=== PATIENT | female | born 1985 | race Caucasian/White ===

== ENCOUNTER 2018-05-04 16:37 | Emergency (ER) | payer OTHER, SELFPAY ==
[2018-05-04 17:02] VITALS: BP 111/73; PULSE 70; RESP 18; TEMP 36.7; O2SAT 99; BMI 28.5
--- NOTE | 2018-05-04 18:28 | DI.RAD.S_ITS ---
PROCEDURE: XR SHOULDER RT MIN 2V INDICATIONS: injury/pain TECHNIQUE: 3 views of the shoulder were acquired. COMPARISON: None. FINDINGS: Bones: No fractures or dislocations. No suspicious bony lesions. Visualized ribs appear intact. Soft tissues: No suspicious soft tissue calcifications. IMPRESSION: No fracture or dislocation. If clinical symptoms persist or clinical suspicion for pathology is high, a repeat examination in 7-10 days, or advanced imaging such as CT or MRI is suggested for further evaluation. Dictated by: Yoel Au M.D. on 05/04/2018 at 19:42 Approved by: Yoel Au M.D. on 05/04/2018 at 19:43
--- NOTE | 2018-05-04 18:38 | ED.UPPEXIN ---
HPI - Extremity Injury (Upper) <CHASE Lopez - Last Filed: 05/04/18 22:17> General Chief Complaint: Extremity Injury, Upper Stated Complaint: FALL RIGHT ARM INJURY Time Seen by Provider: 05/04/18 18:32 Source: patient Mode of arrival: ambulatory Limitations: no limitations History of Present Illness HPI narrative: 32-year-old healthy female that is a former smoker here for complaint of having pain to to her right shoulder over for the last 2 days. She reports that she slipped while she was ice skating landed on her right shoulder area. Increased pain with motion of the right shoulder. She denies hitting her head. She denies any loss of consciousness. No nausea vomiting. Pain is limited to the right shoulder/right upper humerus area. She is ambulatory into the emergency room. She has no other concerns or complaints at this timeframe. Related Data Home Medications Medication Instructions Recorded Confirmed [ CONTROL] #0 04/07/16 cetirizine #0 04/07/16 cholecalciferol (vitamin D3) #0 04/07/16 [Vitamin D3] loratadine [Claritin] #0 04/07/16 Previous Rx's Medication Instructions Recorded ondansetron [Zofran ODT] 4 mg SUBLINGUAL Q4HP PRN #15 odt 04/07/16 Allergies Allergy/AdvReac Type Severity Reaction Status Date / Time carbinoxamine [From [facility]] Allergy Unknown Verified 05/04/18 17:08 pseudoephedrine [From [facility]] Allergy Unknown Verified 05/04/18 17:08 Review of Systems <CHASE Lopez - Last Filed: 05/04/18 22:17> Constitutional Denies chills, Denies fever(s), Denies lethargy and Denies weakness Eyes Denies change in vision, Denies eye discharge, Denies irritation and Denies loss of vision ENT Ears, Nose, Mouth, and Throat: Denies change in voice, Denies neck pain, Denies sore throat and Denies throat swelling Cardiovascular Denies chest pain, Denies irregular heart rhythm, Denies lightheadedness, Denies palpitations and Denies orthopnea Respiratory Denies wheezing Gastrointestinal Gastrointestinal: Denies abdominal pain, Denies change in bowel habits, Denies diarrhea, Denies nausea and Denies vomiting Genitourinary Denies hematuria, Denies flank pain, Denies urinary incontinence and Denies urinary urgency Musculoskeletal Denies neck pain Comments: Right shoulder pain Integumentary/Breasts Denies pruritus, Denies erythema, Denies rash and Denies wounds Neurologic Denies loss of vision and Denies weakness Endocrine Denies palpitations Allergic/Immunologic Denies urticaria, Denies throat swelling and Denies wheezing PFSH <CHASE Lopez - Last Filed: 05/04/18 22:17> Social History Smoking Status: Former smoker Social History Smoking Status: Former smoker Exam <CHASE Lopez - Last Filed: 05/04/18 22:17> Initial Vital Signs Initial Vital Signs: Vital Signs Temperature 98.0 F 05/04/18 17:02 Pulse Rate 70 05/04/18 17:02 Respiratory Rate 18 05/04/18 17:02 Blood Pressure 111/73 05/04/18 17:02 Pulse Oximetry 99 05/04/18 17:02 Const General: cooperative and well developed Nutritional Appearance: well nourished Orientation: alert, awake, oriented x3 and not confused HENIA Mouth: oral mucosae normal and moist mucous membranes Eyes Conjunctivae: conjunctivae normal Sclera: sclerae normal Pupils: PERRL EOM: EOM intact bilaterally Resp Effort & Inspection: normal respiratory effort, able to speak in complete sentences, no respiratory distress and no use of accessory muscles Auscultation: clear to auscultation bilaterally, no rales, no rhonchi and no wheezes Cardio Rate: regular rate Rhythm: regular rhythm Heart Sounds: no click, no gallops, no murmurs and no rubs Pulses: normal peripheral pulses Skin General: no rashes or lesions noted, No jaundice and No petechiae Neuro General: alert, oriented x3, gait normal and no focal motor deficits Speech: speech normal Extrem Other: Right shoulder with no signs of trauma. No ecchymosis. No swelling. Tenderness on palpation to the upper arm area and also to the deltoid region and the shoulder area. Pain with motion to the right shoulder with flexion greater than 40? and abduction greater than 40?. Distal sensation is intact. Distal range of motion is intact. Distal pulses are intact. <Diya Singh DO - Last Filed: 05/05/18 04:27> Initial Vital Signs Initial Vital Signs: Vital Signs Temperature 98.0 F 05/04/18 17:02 Pulse Rate 70 05/04/18 17:02 Respiratory Rate 18 05/04/18 17:02 Blood Pressure 111/73 05/04/18 17:02 Pulse Oximetry 99 05/04/18 17:02 Course <CHASE Lopez - Last Filed: 05/04/18 22:17> Orders Ordered: ED Orders 05/04/18 18:28 XR shoulder RT min 2V Stat Vital Signs - 8 hr 05/04/18 21:18 Pulse Rate 66 Respiratory Rate 16 Blood Pressure 105/72 Pulse Oximetry 100 <DO Carson Gibson Last Filed: 05/05/18 04:27> Orders Ordered: ED Orders 05/04/18 18:28 XR shoulder RT min 2V Stat Vital Signs - 8 hr 05/04/18 21:18 Pulse Rate 66 Respiratory Rate 16 Blood Pressure 105/72 Pulse Oximetry 100 MDM - Extremity Injury (Upper) <CHASE Lopez - Last Filed: 05/04/18 22:17> Imaging Data right shoulder : Radiologist's impression: [address] [place] [id number] XRay Report Signed Patient: Lisa Rivas [facility]#: [id number] : 1985Acct:[id number] Age/Sex: 32 / FDate of Service: 05/04/18 Loc: ED Accession Number: [id number] Procedure: XR shoulder RT min 2V Ordering Provider: Diya Singh D.O. PROCEDURE: XR SHOULDER RT MIN 2V INDICATIONS: injury/pain TECHNIQUE: 3 views of the shoulder were acquired. COMPARISON: None. FINDINGS: Bones: No fractures or dislocations. No suspicious bony lesions. Visualized ribs appear intact. Soft tissues: No suspicious soft tissue calcifications. IMPRESSION: No fracture or dislocation. If clinical symptoms persist or clinical suspicion for pathology is high, a repeat examination in 7-10 days, or advanced imaging such as CT or MRI is suggested for further evaluation. Dictated by: Yoel Au M.D. on 05/04/2018 at 19:42 Approved by: Yoel Au M.D. on 05/04/2018 at 19:43 MDM Narrative Medical decision making narrative: X-ray of the right shoulder was obtained was negative for any acute fractures or findings. Signs and symptoms presents as sprain/contusion of the right shoulder. [id number] ibuprofen as needed for any discomfort. Rest area. Gentle range of motion into the painful areas help keep muscles loose. Follow up with primary care provider in the next several days. Return emergency room for any worsening symptoms. If pain is not improved after 1-2 weeks recommend MRI for further evaluation. Discharge Plan Departure Patient Disposition: Home Clinical Impression: Contusion of right shoulder Qualifiers: Encounter type: initial encounter Qualified Code(s): S40.011A - Contusion of right shoulder, initial encounter Discharge Date/Time: 05/04/18 21:15 Interventions: ED Discharge Assessment Last Done: 05/04/18 21:18 Instructions: DI for Shoulder Pain Activity Restrictions/Additional Instructions: X-ray the right shoulder was obtained was negative for any acute fractures or findings. Signs and symptoms presents as sprain/contusion of the right shoulder. Use [id number] ibuprofen as needed for any discomfort. Rest area. Gentle range of motion painful areas to help keep muscles loose. Follow up with primary care provider. If pain does not resolve after 1-2 weeks recommend MRI for further evaluation. Return emergency room for any Prescriptions: No Action cetirizine 10 MG tablet Qty: 0 RF: 0 loratadine [Claritin] 10 MG tablet Qty: 0 RF: 0 cholecalciferol (vitamin D3) [Vitamin D3] 2,000 UNIT capsule Qty: 0 RF: 0 [ CONTROL] Qty: 0 RF: 0 ondansetron [Zofran ODT] 4 MG tablet,disintegrating 4 mg Sublingual Q4HP PRNQty: 15 RF: 0 Referrals: [facility] [Provider Group] <Diya Singh, - Last Filed: 05/05/18 04:27> Cosign ED Attending Korina Attestation: I was immediately available in the department for consultation. Documentation has been reviewed. I agree with assessment and plan.
[2018-05-04 20:00] VITALS: BP 107/62; PULSE 65; RESP 17; TEMP 36.6; O2SAT 100
[2018-05-04 21:18] VITALS: BP 105/72; PULSE 66; RESP 16; O2SAT 100
== END 2018-05-04 21:15 | disposition home or self-care (01) ==
PROVIDERS: Emergency Provider Nurse Practitioner Family
DX: S40.011A Contusion of right shoulder, initial encounter (principal); W01.0XXA Fall on same level from slipping, tripping and stumbling without subsequent striking against object, initial encounter
CPT/HCPCS: 73030; 99282; 99283

== ENCOUNTER 2018-08-18 13:08 | Emergency (ER) | payer OTHER, SELFPAY ==
[2018-08-18 13:19] VITALS: BP 121/78; PULSE 55; RESP 18; TEMP 36.7; O2SAT 100
--- NOTE | 2018-08-18 13:23 | DI.RAD.S_ITS ---
PROCEDURE: XR CHEST 2V INDICATIONS: chest pain TECHNIQUE: 2 views of the chest were acquired. COMPARISON: None. FINDINGS: Surgical changes and devices: None. Lungs and pleura: Lungs are clear. No pleural effusions or pneumothorax. Mediastinum: Mediastinal contours are normal. Heart size is normal. Bones and chest wall: No suspicious bony abnormalities. Soft tissues appear unremarkable. IMPRESSION: Normal chest. Dictated by: Sarahi Goodman M.D. on 08/18/2018 at 13:56 Approved by: Sarahi Goodman M.D. on 08/18/2018 at 14:03
[2018-08-18 13:54] LABS: Prothrombin Time 11.2 SECONDS (10.1-12.7)
[2018-08-18 13:56] LABS: PTT Partial Thromboplastin Tim 31 SECONDS (26.4-36.2)
--- NOTE | 2018-08-18 13:57 | ED.CHESTPAIN ---
HPI - Chest Pain General Chief Complaint: Chest Pain Stated Complaint: Chest pain & fluttering, rt thigh clinched Time Seen by Provider: 08/18/18 13:53 Source: patient and family Mode of arrival: ambulatory Limitations: no limitations History of Present Illness HPI narrative: 32-year-old male comes to the emergency department with complaint of left-sided chest pain. Kind of above the breast and radiating just along left sternal border. Patient states it woke her up for sleep threat 1:00 a.m.. Patient states she tried some Tums, it was really helpful. She tried some of her home breathing exercises. She states that it has improved a little bit. She ate lunch and had some discomfort, and then at 10:00 a.m. she noticed lot of pain in her right thigh that was deep within the thigh. Patient states that she isn't feeling short of breath. She denies any fevers. Patient has had some swelling all over her joints she noticed particular little bit more yesterday. Pain sort of in her thigh goes from the knee to the hip. She denies any trauma. She denies any skin changes no bruises, rashes in her legs or chest. 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 She has had a cholecystectomy and . She is in the process of getting worked up for autoimmune diseases. As states she has a family history of coronary artery disease in her mom as well as Alport's. Her dad has dyslipidemia, she has a brother with all ports. She does not smoke, occasional alcohol, no illicit. She is accompanied by her and 2 children. Related Data Home Medications Medication Instructions Recorded Confirmed [ CONTROL] #0 04/07/16 cetirizine #0 04/07/16 cholecalciferol (vitamin D3) #0 04/07/16 [Vitamin D3] loratadine [Claritin] #0 04/07/16 Previous Rx's Medication Instructions Recorded ondansetron [Zofran ODT] 4 mg SUBLINGUAL Q4HP PRN #15 odt 04/07/16 Allergies Allergy/AdvReac Type Severity Reaction Status Date / Time carbinoxamine [From [facility]] Allergy Unknown Verified 05/04/18 17:08 pseudoephedrine [From [facility]] Allergy Unknown Verified 05/04/18 17:08 Review of Systems Review of Systems ROS Unobtainable: All systems reviewed & are unremarkable except as noted in HPI and below Constitutional Denies chills, Denies fever(s), Denies lethargy and Denies weakness Cardiovascular Reports chest pain, Denies diaphoresis, Denies syncope, Denies edema, Denies lightheadedness, Denies radiating jaw, neck or arm pain, Denies palpitations, Denies dyspnea and Denies dyspnea on exertion Respiratory Denies chest congestion, Denies cough, Denies pain on inspiration, Denies pain with cough, Denies dyspnea, Denies dyspnea on exertion and Denies wheezing Gastrointestinal Gastrointestinal: Denies abdominal pain, Denies change in bowel habits, Denies diarrhea, Denies nausea and Denies vomiting Genitourinary Denies hematuria, Denies dysuria, Denies flank pain, Denies urinary incontinence and Denies urinary urgency Musculoskeletal Reports as per HPI, Denies back pain, Reports arthralgias (Intermittent variety of joints and changing over time.), Denies muscle weakness, Denies numbness and Denies tingling Integumentary/Breasts Denies erythema and Denies rash Neurologic Denies syncope, Denies focal weakness, Denies numbness, Denies sensory deficit, Denies tingling and Denies weakness Endocrine Denies palpitations Allergic/Immunologic Denies wheezing [facility] Medical History (Updated 08/18/18 @ 15:59 by Mary Centeno DO) Alports syndrome (Chronic) Surgical History (Updated 08/18/18 @ 15:59 by Mary Centeno DO) History of (Chronic) Hx of cholecystectomy (Chronic) Family History (Updated 08/18/18 @ 16:00 by Mary Centeno DO) Mother Coronary artery disease Alports syndrome Father Hyperlipidemia Brother Alports syndrome Social History (Updated 08/18/18 @ 16:00 by Mary Centeno DO) marital status: number of children: 2 Smoking Status: Former smoker alcohol intake: current substance use type: does not use Family History (Updated 08/18/18 @ 16:00 by Mary Centeno DO) Mother Coronary artery disease Alports syndrome Father Hyperlipidemia Brother Alports syndrome Social History (Updated 08/18/18 @ 16:00 by Mary Centeno DO) marital status: number of children: 2 Smoking Status: Former smoker alcohol intake: current substance use type: does not use Exam Narrative Exam Narrative: GENERAL: Alert and oriented x three, well-nourished, well-appearing female in no acute distress. HEENT: Head normocephalic, atraumatic, EOMI, pupils reactive, face symmetric, moist mucous membranes NECK: Supple, full range of motion CARDIOVASCULAR: Regular rate and rhythm without murmurs, rubs or gallops. Nontender to palpation of the chest. There is no erythema or skin color changes or rash. Patient any swelling in her lower extremities. 2+ pulses bilaterally RESPIRATORY: Breath sounds equal bilaterally, no wheezes rales or rhonchi. ABDOMEN: Soft, nontender. Normoactive bowel sounds all 4 quadrants. No guarding or rebound, rigidity, no mass : No CVA tenderness EXTREMITIES: Normal range of motion, no clubbing. Neurovascularly intact NEUROLOGICAL: Cranial nerves II through XII grossly intact. Moving all extremities SKIN: Warm, dry, no petechiae, no rashes or lesions. Initial Vital Signs Initial Vital Signs: Vital Signs Temperature 98.1 F 08/18/18 13:19 Pulse Rate 55 L 08/18/18 13:19 Respiratory Rate 18 08/18/18 13:19 Blood Pressure 121/78 08/18/18 13:19 Pulse Oximetry 100 08/18/18 13:19 Course Orders Ordered: ED Orders 08/18/18 13:23 XR chest 2V Stat EKG-12 Lead Stat 08/18/18 13:37 Complete Blood Count AUTO DIFF Stat Comprehensive Metabolic Panel Stat D Dimer Stat Lipase Stat Partial Thromboplastin Time Stat Prothrombin Time INR Stat Troponin & CK Cardiac Panel Stat 08/18/18 14:11 US periph venous low extrem rt Stat Vital Signs - 8 hr 08/18/18 13:19 08/18/18 14:30 08/18/18 15:00 Temperature 98.1 F Pulse Rate 55 L 73 82 Respiratory Rate 18 19 18 Blood Pressure 121/78 Blood Pressure [Left Arm] 110/66 104/71 Pulse Oximetry 100 100 100 08/18/18 15:30 Temperature Pulse Rate 82 Respiratory Rate 12 Blood Pressure Blood Pressure [Left Arm] 103/68 Pulse Oximetry 100 MDM - Chest Pain Lab Data Attestation: I reviewed the patient's lab results. Result diagrams: 08/18/18 13:37 08/18/18 13:37 Lab Results 08/18/18 08/18/18 08/18/18 Range/Units 13:37 13:37 13:37 WBC 7.3 (4.5-11.0) X10^3/uL RBC 4.03 (4.0-5.2) X10^6/uL Hgb 10.9 L (12.0-16.0) g/dL Hct 33.8 L (36-46) % MCV 83.7 (80-100) fL MCH 27.1 (26-34) PG MCHC 32.4 (30-36) % RDW 15.2 H (11.6-14.8) % Plt Count 239 (150-400) X10^3/uL Neut % (Auto) 58.2 (50-75) % Lymph % (Auto) 31.4 (25-40) % [place] % (Auto) 7.7 (3-14) % Eos % (Auto) 2.3 (2-4) % Baso % (Auto) 0.4 (0-2) % Neut # (Auto) 4300 (8376-7373) /uL Lymph # (Auto) 2300 (3402-8718) /uL [place] # (Auto) 600 (0-900) /uL Eos # (Auto) 200 (0-450) /uL Baso # (Auto) 0 (0-100) /uL PT 11.2 (10.1-12.7) SECONDS INR 1.0 (0.9-1.3) APTT 31 (26.4-36.2) SECONDS D-Dimer (<230) ng/mL Sodium 139 (137-145) mmol/L Potassium 3.7 (3.4-5.1) mmol/L Chloride 104 (98-107) mmol/L Carbon Dioxide 29 (22-32) mmol/L BUN 12 (7-17) mg/dL Creatinine 0.80 (0.52-1.04) mg/dL Estimated GFR > 60.0 (>60) mL/min BUN/Creatinine Ratio 15.0 (6-22) Glucose 85 (70-100) mg/dL Calcium 9.5 (8.4-10.2) mg/dL Total Bilirubin 0.2 (0.2-1.3) mg/dL AST 21 (14-36) IU/L ALT 36 (9-52) IU/L Alkaline Phosphatase 56 (38-126) U/L Total Creatine Kinase 44 (30-135) U/L CK-MB (CK-2) TNP CK-MB (CK-2) Rel Index TNP Troponin I < 0.012 (0.01-0.034) ng/mL Total Protein 7.3 (6.3-8.2) g/dL Albumin 4.1 (3.5-5.0) g/dL Globulin 3.2 (1.7-4.1) g/dL Albumin/Globulin Ratio 1.3 (1.0-2.8) Lipase 73 (23-300) U/L 08/18/18 Range/Units 13:37 WBC (4.5-11.0) X10^3/uL RBC (4.0-5.2) X10^6/uL Hgb (12.0-16.0) g/dL Hct (36-46) % MCV (80-100) fL MCH (26-34) PG MCHC (30-36) % RDW (11.6-14.8) % Plt Count (150-400) X10^3/uL Neut % (Auto) (50-75) % Lymph % (Auto) (25-40) % [place] % (Auto) (3-14) % Eos % (Auto) (2-4) % Baso % (Auto) (0-2) % Neut # (Auto) (8647-0202) /uL Lymph # (Auto) (1670-2827) /uL [place] # (Auto) (0-900) /uL Eos # (Auto) (0-450) /uL Baso # (Auto) (0-100) /uL PT (10.1-12.7) SECONDS INR (0.9-1.3) APTT (26.4-36.2) SECONDS D-Dimer < 200 (<230) ng/mL Sodium (137-145) mmol/L Potassium (3.4-5.1) mmol/L Chloride (98-107) mmol/L Carbon Dioxide (22-32) mmol/L BUN (7-17) mg/dL Creatinine (0.52-1.04) mg/dL Estimated GFR (>60) mL/min BUN/Creatinine Ratio (6-22) Glucose (70-100) mg/dL Calcium (8.4-10.2) mg/dL Total Bilirubin (0.2-1.3) mg/dL AST (14-36) IU/L ALT (9-52) IU/L Alkaline Phosphatase (38-126) U/L Total Creatine Kinase (30-135) U/L CK-MB (CK-2) CK-MB (CK-2) Rel Index Troponin I (0.01-0.034) ng/mL Total Protein (6.3-8.2) g/dL Albumin (3.5-5.0) g/dL Globulin (1.7-4.1) g/dL Albumin/Globulin Ratio (1.0-2.8) Lipase (23-300) U/L Urine Dip Bedside Urine Glucose Negative Bedside Urine Bilirubin - Negative Bedside Urine Ketone - Negative Urine Specific [place] 1.030 Bedside Urine Occult Blood ++ Bedside Urine pH 6.0 Bedside Urine Protein - Negative Bedside Urine Urobilinogen - Negative Bedside Urine Nitrite - Negative Bedside Urine Leukocytes - Negative Esterase Imaging Data Chest x-ray: Radiologist's impression: [place] [address] XRay Report Signed Patient: Lisa Rivas MMR#: [id number] : 1985Acct:[id number] Age/Sex: 32 / FDate of Service: 08/18/18 Loc: ED Accession Number: [id number] Procedure: XR chest 2V Ordering Provider: Mary Centeno D.O. PROCEDURE: XR CHEST 2V INDICATIONS: chest pain TECHNIQUE: 2 views of the chest were acquired. COMPARISON: None. FINDINGS: Surgical changes and devices: None. Lungs and pleura: Lungs are clear. No pleural effusions or pneumothorax. Mediastinum: Mediastinal contours are normal. Heart size is normal. Bones and chest wall: No suspicious bony abnormalities. Soft tissues appear unremarkable. IMPRESSION: Normal chest. Dictated by: Sarahi Goodman M.D. on 08/18/2018 at 13:56 Approved by: Sarahi Goodman M.D. on 08/18/2018 at 14:03 Right lower extremity DVT ultrasound: Radiologist's impression: [facility] DATE TYPE STATUS AUTHOR 08/18/18 14:11 Elio Funes 08/18/18 13:23 Sarahi Goodman 05/04/18 18:28 Steve Au Brandy M 32, F0 1985 REG ER, ED.LOC - Main ED: R07 Chest Pain Search Chart NF - Not included in interaction checking ONSET Today 15:30 Lisa Rivas 32 F [address] [address] Ultrasound Report Signed Patient: Lisa Rivas MMR#: [id number] : 1985Acct:[id number] Age/Sex: 32 / FDate of Service: 08/18/18 Loc: ED Accession Number: [id number] Procedure: US periph venous low extrem rt Ordering Provider: Mary Centeno D.O. PROCEDURE: US PERIPH VENOUS LOW EXTREM RT INDICATIONS: RIGHT THIGH PAIN, CHEST PAIN. NO TRAUMA, ALPORTS SYNDROME TECHNIQUE: Real-time imaging, as well as color and pulse Doppler interrogation, were performed of the lower extremity deep veins from the inguinal ligament to the popliteal fossa. COMPARISON: None. FINDINGS: The common femoral, femoral and popliteal veins are normally compressible, and free of intraluminal thrombus. Color and pulse Doppler demonstrate normal phasic intraluminal flow. There is normal augmentation response to distal compression maneuver. IMPRESSION: Negative for deep venous thrombosis. Dictated by: Elio Funes M.D. on 08/18/2018 at 13:43 Approved by: Elio Funes M.D. on 08/18/2018 at 13:43 ECG Data Attestation: I personally reviewed and interpreted this ECG as follows: Prior ECG tracings: not available for review Interpretation: Sinus rhythm the rate 86 P are 173 QRS 87 QTC of [address] elevation or depression. No prior EKGs are available MDM Narrative Medical decision making narrative: Patient's lab work is negative including troponin, patient is a little bit anemic with hemoglobin of 10, her last hemoglobin was at 13 in 2017. His CMP is negative, troponin is negative. Patient's lipase is normal. Patient's EKG shows a sinus rhythm. Ultrasound preliminary report was negative. With a normal chest x-ray. Patient's ultrasound is negative. I discussed she should follow up with her primary care she has been having some workup for autoimmune diseases. Patient's greater than 12 hours out with negative troponin. Vital signs are stable here in the department. I suspect that this is not coronary, suspicion for pulmonary embolism or other lung causes are unlikely. Discharge Plan Departure Patient Disposition: Home Clinical Impression: Atypical chest pain, Pain in right thigh Discharge Date/Time: 08/18/18 15:57 Interventions: ED Discharge Assessment Last Done: 08/18/18 16:05 Instructions: DI for Atypical Chest Pain Activity Restrictions/Additional Instructions: Follow-up with your physician in the next week for recheck. Discussed her symptoms today to see if they would like to do any additional testing. You may continue home medications as prescribed. You may try Pepcid [id number] up to 40 mg daily if you find it helpful.' Return to the emergency department for fevers greater 100.4 F, worsening chest pain, shortness of breath, passing out, persistent vomiting, black or bloody stools, swelling in her extremities or other new or concerning symptoms. Prescriptions: No Action cetirizine 10 MG tablet Qty: 0 RF: 0 loratadine [Claritin] 10 MG tablet Qty: 0 RF: 0 cholecalciferol (vitamin D3) [Vitamin D3] 2,000 UNIT capsule Qty: 0 RF: 0 [ CONTROL] Qty: 0 RF: 0 ondansetron [Zofran ODT] 4 MG tablet,disintegrating 4 mg Sublingual Q4HP PRNQty: 15 RF: 0
[2018-08-18 14:01] LABS: Alanine Aminotransferase 36 IU/L (9-52); Albumin 4.1 g/dL (3.5-5.0); Albumin Globulin Ratio 1.3 (1.0-2.8); Alkaline Phosphatase 56 U/L (38-126); Aspartate Aminotransferase 21 IU/L (14-36); Bilirubin Total 0.2 mg/dL (0.2-1.3); Blood Urea Nitrogen 12 mg/dL (7-17); Calcium 9.5 mg/dL (8.4-10.2); Carbon Dioxide 29 mmol/L (22-32); Chloride 104 mmol/L (98-107); Creatine Kinase 44 U/L (30-135); Estimated Glomerular Filt Rate > 60.0 mL/min (>60); Globulin 3.2 g/dL (1.7-4.1); Glucose 85 mg/dL (70-100); HEMOLYSIS < 15 (0-50); Lipase 73 U/L (23-300); Potassium 3.7 mmol/L (3.4-5.1); Sodium 139 mmol/L (137-145); Total Protein 7.3 g/dL (6.3-8.2)
[2018-08-18 14:11] LABS: Troponin I < 0.012 ng/mL (0.01-0.034)
--- NOTE | 2018-08-18 14:13 | ED_ITS ---
HPI - Chest Pain General Chief Complaint: Chest Pain Stated Complaint: Chest pain & fluttering, rt thigh clinched Time Seen by Provider: 08/18/18 13:53 Source: patient and family Mode of arrival: ambulatory Limitations: no limitations History of Present Illness HPI narrative: 32-year-old male comes to the emergency department with complaint of left-sided chest pain. Kind of above the breast and radiating just along left sternal border. Patient states it woke her up for sleep threat 1:00 a.m.. Patient states she tried some Tums, it was really helpful. She tried some of her home breathing exercises. She states that it has improved a little bit. She ate lunch and had some discomfort, and then at 10:00 a.m. she noticed lot of pain in her right thigh that was deep within the thigh. Patient states that she isn't feeling short of breath. She denies any fevers. Patient has had some swelling all over her joints she noticed particular little bit more yesterday. Pain sort of in her thigh goes from the knee to the hip. She denies any trauma. She denies any skin changes no bruises, rashes in her legs or chest. 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 She has had a cholecystectomy and . She is in the process of getting worked up for autoimmune diseases. As states she has a family history of coronary artery disease in her mom as well as Alport's. Her dad has dyslipidemia, she has a brother with all ports. She does not smoke, occasional alcohol, no illicit. She is accompanied by her and 2 children. Related Data Home Medications Medication Instructions Recorded Confirmed [ CONTROL] #0 04/07/16 cetirizine #0 04/07/16 cholecalciferol (vitamin D3) #0 04/07/16 [Vitamin D3] loratadine [Claritin] #0 04/07/16 Previous Rx's Medication Instructions Recorded ondansetron [Zofran ODT] 4 mg SUBLINGUAL Q4HP PRN #15 odt 04/07/16 Allergies Allergy/AdvReac Type Severity Reaction Status Date / Time carbinoxamine [From [facility]] Allergy Unknown Verified 05/04/18 17:08 pseudoephedrine [From [facility]] Allergy Unknown Verified 05/04/18 17:08 Review of Systems Review of Systems ROS Unobtainable: All systems reviewed & are unremarkable except as noted in HPI and below Constitutional Denies chills, Denies fever(s), Denies lethargy and Denies weakness Cardiovascular Reports chest pain, Denies diaphoresis, Denies syncope, Denies edema, Denies lightheadedness, Denies radiating jaw, neck or arm pain, Denies palpitations, Denies dyspnea and Denies dyspnea on exertion Respiratory Denies chest congestion, Denies cough, Denies pain on inspiration, Denies pain with cough, Denies dyspnea, Denies dyspnea on exertion and Denies wheezing Gastrointestinal Gastrointestinal: Denies abdominal pain, Denies change in bowel habits, Denies diarrhea, Denies nausea and Denies vomiting Genitourinary Denies hematuria, Denies dysuria, Denies flank pain, Denies urinary incontinence and Denies urinary urgency Musculoskeletal Reports as per HPI, Denies back pain, Reports arthralgias (Intermittent variety of joints and changing over time.), Denies muscle weakness, Denies numbness and Denies tingling Integumentary/Breasts Denies erythema and Denies rash Neurologic Denies syncope, Denies focal weakness, Denies numbness, Denies sensory deficit, Denies tingling and Denies weakness Endocrine Denies palpitations Allergic/Immunologic Denies wheezing [facility] Medical History (Updated 08/18/18 @ 15:59 by Mary Centeno DO) Alports syndrome (Chronic) Surgical History (Updated 08/18/18 @ 15:59 by Mary Centeno DO) History of (Chronic) Hx of cholecystectomy (Chronic) Family History (Updated 08/18/18 @ 16:00 by Mary Centeno DO) Mother Coronary artery disease Alports syndrome Father Hyperlipidemia Brother Alports syndrome Social History (Updated 08/18/18 @ 16:00 by Mary Centeno DO) marital status: number of children: 2 Smoking Status: Former smoker alcohol intake: current substance use type: does not use Family History (Updated 08/18/18 @ 16:00 by Mary Centeno DO) Mother Coronary artery disease Alports syndrome Father Hyperlipidemia Brother Alports syndrome Social History (Updated 08/18/18 @ 16:00 by Mary Centeno DO) marital status: number of children: 2 Smoking Status: Former smoker alcohol intake: current substance use type: does not use Exam Narrative Exam Narrative: GENERAL: Alert and oriented x three, well-nourished, well- appearing female in no acute distress. HEENT: Head normocephalic, atraumatic, EOMI, pupils reactive, face symmetric, moist mucous membranes NECK: Supple, full range of motion CARDIOVASCULAR: Regular rate and rhythm without murmurs, rubs or gallops. Nontender to palpation of the chest. There is no erythema or skin color changes or rash. Patient any swelling in her lower extremities. 2+ pulses bilaterally RESPIRATORY: Breath sounds equal bilaterally, no wheezes rales or rhonchi. ABDOMEN: Soft, nontender. Normoactive bowel sounds all 4 quadrants. No guarding or rebound, rigidity, no mass : No CVA tenderness EXTREMITIES: Normal range of motion, no clubbing. Neurovascularly intact NEUROLOGICAL: Cranial nerves II through XII grossly intact. Moving all extremities SKIN: Warm, dry, no petechiae, no rashes or lesions. Initial Vital Signs Initial Vital Signs: Vital Signs Temperature 98.1 F 08/18/18 13:19 Pulse Rate 55 L 08/18/18 13:19 Respiratory Rate 18 08/18/18 13:19 Blood Pressure 121/78 08/18/18 13:19 Pulse Oximetry 100 08/18/18 13:19 Course Orders Ordered: ED Orders 08/18/18 13:23 XR chest 2V Stat EKG-12 Lead Stat 08/18/18 13:37 Complete Blood Count AUTO DIFF Stat Comprehensive Metabolic Panel Stat D Dimer Stat Lipase Stat Partial Thromboplastin Time Stat Prothrombin Time INR Stat Troponin & CK Cardiac Panel Stat 08/18/18 14:11 US periph venous low extrem rt Stat Vital Signs - 8 hr 08/18/18 13:19 08/18/18 14:30 08/18/18 15:00 Temperature 98.1 F Pulse Rate 55 L 73 82 Respiratory Rate 18 19 18 Blood Pressure 121/78 Blood Pressure [Left Arm] 110/66 104/71 Pulse Oximetry 100 100 100 08/18/18 15:30 Temperature Pulse Rate 82 Respiratory Rate 12 Blood Pressure Blood Pressure [Left Arm] 103/68 Pulse Oximetry 100 MDM - Chest Pain Lab Data Attestation: I reviewed the patient's lab results. Result diagrams: 08/18/18 13:37 08/18/18 13:37 Lab Results 08/18/18 08/18/18 08/18/18 Range/Units 13:37 13:37 13:37 WBC 7.3 (4.5-11.0) X10^3/uL RBC 4.03 (4.0-5.2) X10^6/uL Hgb 10.9 L (12.0-16.0) g/dL Hct 33.8 L (36-46) % MCV 83.7 (80-100) fL MCH 27.1 (26-34) PG MCHC 32.4 (30-36) % RDW 15.2 H (11.6-14.8) % Plt Count 239 (150-400) X10^3/uL Neut % (Auto) 58.2 (50-75) % Lymph % (Auto) 31.4 (25-40) % Garrett % (Auto) 7.7 (3-14) % Eos % (Auto) 2.3 (2-4) % Baso % (Auto) 0.4 (0-2) % Neut # (Auto) 4300 (1210-0920) /uL Lymph # (Auto) 2300 (4417-9357) /uL Garrett # (Auto) 600 (0-900) /uL Eos # (Auto) 200 (0-450) /uL Baso # (Auto) 0 (0-100) /uL PT 11.2 (10.1-12.7) SECONDS INR 1.0 (0.9-1.3) APTT 31 (26.4-36.2) SECONDS D-Dimer (<230) ng/mL Sodium 139 (137-145) mmol/L Potassium 3.7 (3.4-5.1) mmol/L Chloride 104 (98-107) mmol/L Carbon Dioxide 29 (22-32) mmol/L BUN 12 (7-17) mg/dL Creatinine 0.80 (0.52-1.04) mg/dL Estimated GFR > 60.0 (>60) mL/min BUN/Creatinine Ratio 15.0 (6-22) Glucose 85 (70-100) mg/dL Calcium 9.5 (8.4-10.2) mg/dL Total Bilirubin 0.2 (0.2-1.3) mg/dL AST 21 (14-36) IU/L ALT 36 (9-52) IU/L Alkaline Phosphatase 56 (38-126) U/L Total Creatine Kinase 44 (30-135) U/L CK-MB (CK-2) TNP CK-MB (CK-2) Rel Index TNP Troponin I < 0.012 (0.01-0.034) ng/mL Total Protein 7.3 (6.3-8.2) g/dL Albumin 4.1 (3.5-5.0) g/dL Globulin 3.2 (1.7-4.1) g/dL Albumin/Globulin Ratio 1.3 (1.0-2.8) Lipase 73 (23-300) U/L 08/18/18 Range/Units 13:37 WBC (4.5-11.0) X10^3/uL RBC (4.0-5.2) X10^6/uL Hgb (12.0-16.0) g/dL Hct (36-46) % MCV (80-100) fL MCH (26-34) PG MCHC (30-36) % RDW (11.6-14.8) % Plt Count (150-400) X10^3/uL Neut % (Auto) (50-75) % Lymph % (Auto) (25-40) % Garrett % (Auto) (3-14) % Eos % (Auto) (2-4) % Baso % (Auto) (0-2) % Neut # (Auto) (8606-6454) /uL Lymph # (Auto) (4835-0433) /uL Garrett # (Auto) (0-900) /uL Eos # (Auto) (0-450) /uL Baso # (Auto) (0-100) /uL PT (10.1-12.7) SECONDS INR (0.9-1.3) APTT (26.4-36.2) SECONDS D-Dimer < 200 (<230) ng/mL Sodium (137-145) mmol/L Potassium (3.4-5.1) mmol/L Chloride (98-107) mmol/L Carbon Dioxide (22-32) mmol/L BUN (7-17) mg/dL Creatinine (0.52-1.04) mg/dL Estimated GFR (>60) mL/min BUN/Creatinine Ratio (6-22) Glucose (70-100) mg/dL Calcium (8.4-10.2) mg/dL Total Bilirubin (0.2-1.3) mg/dL AST (14-36) IU/L ALT (9-52) IU/L Alkaline Phosphatase (38-126) U/L Total Creatine Kinase (30-135) U/L CK-MB (CK-2) CK-MB (CK-2) Rel Index Troponin I (0.01-0.034) ng/mL Total Protein (6.3-8.2) g/dL Albumin (3.5-5.0) g/dL Globulin (1.7-4.1) g/dL Albumin/Globulin Ratio (1.0-2.8) Lipase (23-300) U/L Urine Dip Bedside Urine Glucose Negative Bedside Urine Bilirubin - Negative Bedside Urine Ketone - Negative Urine Specific Driggs 1.030 Bedside Urine Occult Blood ++ Bedside Urine pH 6.0 Bedside Urine Protein - Negative Bedside Urine Urobilinogen - Negative Bedside Urine Nitrite - Negative Bedside Urine Leukocytes - Negative Esterase Imaging Data Chest x-ray: Radiologist's impression: [place] [address] XRay Report Signed Patient: Lisa Rivas MMR#: [id number] : 1985Acct:[id number] Age/Sex: 32 / FDate of Service: 08/18/18 Loc: ED Accession Number: [id number] Procedure: XR chest 2V Ordering Provider: Mary Centeno D.O. PROCEDURE: XR CHEST 2V INDICATIONS: chest pain TECHNIQUE: 2 views of the chest were acquired. COMPARISON: None. FINDINGS: Surgical changes and devices: None. Lungs and pleura: Lungs are clear. No pleural effusions or pneumothorax. Mediastinum: Mediastinal contours are normal. Heart size is normal. Bones and chest wall: No suspicious bony abnormalities. Soft tissues appear unremarkable. IMPRESSION: Normal chest. Dictated by: Sarahi Goodman M.D. on 08/18/2018 at 13:56 Approved by: Sarahi Goodman M.D. on 08/18/2018 at 14:03 Right lower extremity DVT ultrasound: Radiologist's impression: [facility] DATE TYPE STATUS AUTHOR 08/18/18 14:11 Elio Funes 08/18/18 13:23 Sarahi Goodman 05/04/18 18:28 Steve Au Brandy M 32, F0 1985 REG ER, ED.LOC - Main ED: R07 Chest Pain Search Chart NF - Not included in interaction checking ONSET Today 15:30 Lisa Rivas 32 F [address] [address] Ultrasound Report Signed Patient: Lisa Rivas MMR#: [id number] : 1985Acct:[id number] Age/Sex: 32 / FDate of Service: 08/18/18 Loc: ED Accession Number: [id number] Procedure: US periph venous low extrem rt Ordering Provider: Mary Centeno D.O. PROCEDURE: US PERIPH VENOUS LOW EXTREM RT INDICATIONS: RIGHT THIGH PAIN, CHEST PAIN. NO TRAUMA, ALPORTS SYNDROME TECHNIQUE: Real-time imaging, as well as color and pulse Doppler interrogation, were perfo rmed of the lower extremity deep veins from the inguinal ligament to the popliteal fossa. COMPARISON: None. FINDINGS: The common femoral, femoral and popliteal veins are normally compressible, and free of intraluminal thrombus. Color and pulse Doppler demonstrate normal phasic intraluminal flow. There is normal augmentation response to distal compression maneuver. IMPRESSION: Negative for deep venous thrombosis. Dictated by: Elio Funes M.D. on 08/18/2018 at 13:43 Approved by: Elio Funes M.D. on 08/18/2018 at 13:43 ECG Data Attestation: I personally reviewed and interpreted this ECG as follows: Prior ECG tracings: not available for review Interpretation: Sinus rhythm the rate 86 P are 173 QRS 87 QTC of [address] daniela vation or depression. No prior EKGs are available MDM Narrative Medical decision making narrative: Patient's lab work is negative including troponin, patient is a little bit anemic with hemoglobin of 10, her last hemoglobin was at 13 in 2017. His CMP is negative, troponin is negative. Patient's lipase is normal. Patient's EKG shows a sinus rhythm. Ultrasound preliminary report was negative. With a normal chest x-ray. Patient's ultrasound is negative. I discussed she should follow up with her primary care she has been having some workup for autoimmune diseases. Patient's greater than 12 hours out with negative troponin. Vital signs are stable here in the department. I suspect that this is not coronary, suspicion for pulmonary embolism or other lung causes are unlikely. Discharge Plan Departure Patient Disposition: Home Clinical Impression: Atypical chest pain, Pain in right thigh Discharge Date/Time: 08/18/18 15:57 Interventions: ED Discharge Assessment Last Done: 08/18/18 16:05 Instructions: DI for Atypical Chest Pain Activity Restrictions/Additional Instructions: Follow-up with your physician in the next week for recheck. Discussed her symptoms today to see if they would like to do any additional testing. You may continue home medications as prescribed. You may try Pepcid [id number] up to 40 mg daily if you find it helpful.' Return to the emergency department for fevers greater 100.4 F, worsening chest pain, shortness of breath, passing out, persistent vomiting, black or bloody stools, swelling in her extremities or other new or concerning symptoms. Prescriptions: No Action cetirizine 10 MG tablet Qty: 0 RF: 0 loratadine [Claritin] 10 MG tablet Qty: 0 RF: 0 cholecalciferol (vitamin D3) [Vitamin D3] 2,000 UNIT capsule Qty: 0 RF: 0 [ CONTROL] Qty: 0 RF: 0 ondansetron [Zofran ODT] 4 MG tablet,disintegrating 4 mg Sublingual Q4HP PRNQty: 15 RF: 0
[2018-08-18 14:19] LABS: Add Manual Diff / Slide Review NO; Basophils Absolute Auto 0 /uL (0-100); Basophils Percent Auto 0.4 % (0-2); Eosinophils Absolute Auto 200 /uL (0-450); Eosinophils Percent Auto 2.3 % (2-4); Hematocrit 33.8 % (36-46); Hemoglobin 10.9 g/dL (12.0-16.0); Lymphocytes Absolute Auto 2300 /uL (1100-4500); Lymphocytes Percent Auto 31.4 % (25-40); Mean Corpuscular HGB Conc 32.4 % (30-36); Mean Corpuscular Hemoglobin 27.1 PG (26-34); Mean Corpuscular Volume 83.7 fL (80-100); Monocytes Absolute Auto 600 /uL (0-900); Monocytes Percent Auto 7.7 % (3-14); Neutrophils Absolute Auto 4300 /uL (1500-7000); Neutrophils Percent Auto 58.2 % (50-75); Platelet Count 239 X10^3/uL (150-400); Red Blood Cell Count 4.03 X10^6/uL (4.0-5.2); Red Cell Distribution Width 15.2 % (11.6-14.8); White Blood Cell Count 7.3 X10^3/uL (4.5-11.0)
[2018-08-18 14:30] VITALS: BP 110/66; PULSE 73; RESP 19; O2SAT 100
[2018-08-18 14:53] LABS: D Dimer < 200 ng/mL (<230)
[2018-08-18 15:00] VITALS: BP 104/71; PULSE 82; RESP 18; O2SAT 100
--- NOTE | 2018-08-18 15:18 | PC.NURSE ---
pt c/o onset of chest pain started about noon today, pt reports history of anxiety also. pt concerned because pain did not resolve. pt c/o sob, but states that happens with my anxiety too pt reports increased stress due to impending lab results. pt currently being evaluated for autoimmune disease. pt also c/o right thigh cramp this am, with difficulty moving due to pain.
[2018-08-18 15:30] VITALS: BP 103/68; PULSE 82; RESP 12; O2SAT 100
== END 2018-08-18 15:57 | disposition home or self-care (01) ==
PROVIDERS: Emergency Provider Emergency Medicine
DX: R07.89 Other chest pain (principal); M79.651 Pain in right thigh
CPT/HCPCS: 36415; 71046; 80053; 81003; 82550; 83690; 84484; 85025; 85379; 85610; 85730; 93005; 93971; 99283; 99285

== ENCOUNTER 2018-11-15 10:18 | Emergency (ER) | payer OTHER, SELFPAY ==
[2018-11-15 11:00] VITALS: BP 111/67; PULSE 75; RESP 18; TEMP 36.5; O2SAT 99; BMI 29.8
--- NOTE | 2018-11-15 11:43 | ED_ITS ---
HPI - Skin/Abscess/Foreign Bdy <CHASE García - Last Filed: 11/15/18 22:59> General Chief complaint: Skin/Abscess/Foreign Body Stated complaint: left breast rash/redness/burning x7 days Time Seen by Provider: 11/15/18 10:44 Source: patient Mode of arrival: ambulatory Limitations: no limitations History of Present Illness HPI narrative: 33-year-old healthy female presents emergency department today complaining of a vesicle rash under her left breast that started 5 days ago. She reports associated 4/10 burning sensation, 2/10 dull aching pain, and pruritus. She states the rash has worsened since yesterday. She has placed hydrocortisone cream on the area without relief, she was placed Benadryl cream on the area without relief, and has been taking Claritin for the itching. She states she does not need anything for pain and has not tried any Tylenol or ibuprofen. She reports 1 episode of vomiting yesterday and a do episodes of diarrhea today. Patient denies fever, chills, chest pain, shortness of breath, abdominal pain, dysuria, breast pain, vision changes, or prior lesions to the area. Patient states she has had varicella in the past but has not had zoster. She reports she is under significant stress lately due to issues in her household as well as starting school. Related Data Home Medications Medication Instructions Recorded Confirmed [ CONTROL] #0 04/07/16 cetirizine #0 04/07/16 cholecalciferol (vitamin D3) #0 04/07/16 [Vitamin D3] loratadine [Claritin] #0 04/07/16 Previous Rx's Medication Instructions Recorded ondansetron [Zofran ODT] 4 mg SUBLINGUAL Q4HP PRN #15 odt 04/07/16 acyclovir 800 mg PO 5XD 7 Days #35 tab 11/15/18 hydroxyzine HCl 25 mg PO BEDTIME PRN #7 tab 11/15/18 Allergies Allergy/AdvReac Type Severity Reaction Status Date / Time carbinoxamine [From [facility]] Allergy Unknown Verified 05/04/18 17:08 pseudoephedrine [From [facility]] Allergy Unknown Verified 05/04/18 17:08 Review of Systems <CHASE García - Last Filed: 11/15/18 22:59> Review of Systems Narrative: REVIEW OF SYSTEMS: GENERAL: Denies fever or chills. HENT: Denies head trauma. EYE: Denies double vision or vision loss. CARDIOVASCULAR: Denies syncope. MUSCULOSKELETAL: Denies weakness, or deformities. GI: Complains of 1 episode of vomiting. INTEGUMENTARY: Complains of rash under left breast, see HPI. NEURO: Denies numbness or tingling. PFSH <CHASE García - Last Filed: 11/15/18 22:59> Medical History Alports syndrome (Chronic) Surgical History History of (Chronic) Hx of cholecystectomy (Chronic) Family History (Updated 08/18/18 @ 16:00 by Mary Centeno DO) Mother Coronary artery disease Alports syndrome Father Hyperlipidemia Brother Alports syndrome Social History (Updated 08/18/18 @ 16:00 by Mary Centeno DO) marital status: number of children: 2 Smoking Status: Former smoker alcohol intake: current substance use type: does not use Family History Mother Coronary artery disease Alports syndrome Father Hyperlipidemia Brother Alports syndrome Social History marital status: number of children: 2 Smoking Status: Former smoker alcohol intake: current substance use type: does not use Exam <CHASE García - Last Filed: 11/15/18 22:59> Initial Vital Signs Initial Vital Signs: Vital Signs Temperature 97.7 F 11/15/18 11:00 Pulse Rate 75 11/15/18 11:00 Respiratory Rate 18 11/15/18 11:00 Blood Pressure 111/67 11/15/18 11:00 Pulse Oximetry 99 11/15/18 11:00 PHYSICAL EXAMINATION: GENERAL: Well groomed, alert, and cooperative. Answers questions promptly and appropriately. Vital signs noted. HENT: Normocephalic, atraumatic. RESPIRATORY: Normal respiratory rate, trachea midline, airway patent. No stridor, nasal flaring or accessory muscle use. MUSCULOSKELETAL: Normal gait and coordination. Equal tone and mass bilaterally. EXTREMITIES: CMS intact. Moves all extremities. SKIN: Warm, dry, soft, appropriate color for ethnicity. Patches of vesicles on erythematous base under left breast, patches extending to left side of back along T6 dermatome. No crusts present. Tender to palpation. BREAST: No breast tenderness or nipple discharge. NEURO: Alert and Oriented X 3. Good coordination. PSYCH: Appropriate affect and mood. <Yvon Jacome DO - Last Filed: 11/16/18 07:18> Initial Vital Signs Initial Vital Signs: Vital Signs Temperature 97.7 F 11/15/18 11:00 Pulse Rate 75 11/15/18 11:00 Respiratory Rate 18 11/15/18 11:00 Blood Pressure 111/67 11/15/18 11:00 Pulse Oximetry 99 11/15/18 11:00 Course <CHASE García - Last Filed: 11/15/18 22:59> Vital Signs Vital signs: Vital Signs - 8 hr 11/15/18 11:00 Temperature 97.7 F Pulse Rate 75 Respiratory Rate 18 Blood Pressure 111/67 Pulse Oximetry 99 <Yvon Jacome DO - Last Filed: 11/16/18 07:18> Vital Signs Vital signs: Vital Signs - 8 hr 11/15/18 11:00 Temperature 97.7 F Pulse Rate 75 Respiratory Rate 18 Blood Pressure 111/67 Pulse Oximetry 99 [facility] - Skin/Abscess/Foreign Bdy <CHASE García - Last Filed: 11/15/18 22:59> Medical Records Attestation: I reviewed the patient's medical records. Lab Data Attestation: I reviewed the patient's lab results. [facility] Narrative Medical decision making narrative: Classic presentation of shingles (vesicular rash, pruritus, tenderness, erythema, feelings of general malaise), patient has had chickenpox as a child and is currently under stress. Discharge Plan Departure Patient Disposition: Home Clinical Impression: Varicella zoster Discharge Date/Time: 11/15/18 11:28 Instructions: DI for Shingles Activity Restrictions/Additional Instructions: Thank you for entrusting me with your care today. As discussed, I believe your symptoms are caused by shingles, this is a virus caused by dormant chickenpox. Please take the medication as prescribed. Keep the area covered and wash your hands frequently, avoid contact with women or small infants. Follow up with your primary care provider within the week for re-evaluation. You may use ibuprofen for pain. Return emergency department if you develop chest pain, shortness of breath, syncope, a rash that develops in your eyes, or significant spreading of rash vertically. Prescriptions: New acyclovir 800 mg tablet 800 mg PO 5XD 7 Days Qty: 35 RF: 0 hydroxyzine HCl 25 mg tablet 25 mg PO BEDTIME PRN (Reason: itching) Qty: 7 RF: 0 No Action cetirizine 10 MG tablet Qty: 0 RF: 0 loratadine [Claritin] 10 MG tablet Qty: 0 RF: 0 cholecalciferol (vitamin D3) [Vitamin D3] 2,000 UNIT capsule Qty: 0 RF: 0 [ CONTROL] Qty: 0 RF: 0 ondansetron [Zofran ODT] 4 MG tablet,disintegrating 4 mg Sublingual Q4HP PRNQty: 15 RF: 0 <Yvon Jacome, - Last Filed: 11/16/18 07:18> Sign Out Provider Sign Out Attestation: I was available for consultation during this patient's emergency department encounter
== END 2018-11-15 11:28 | disposition home or self-care (01) ==
PROVIDERS: Emergency Provider Nurse Practitioner
DX: B02.9 Zoster without complications (principal)
CPT/HCPCS: 99282

== ENCOUNTER 2020-03-16 11:44 | Emergency (ER) | payer OTHER, SELFPAY ==
[2020-03-16 12:04] VITALS: BP 127/69; PULSE 90; RESP 15; TEMP 36.6; O2SAT 97; BMI 32.9
--- NOTE | 2020-03-16 13:25 | ED.SKABFB ---
HPI - Skin/Abscess/Foreign Bdy General Chief complaint: Skin/Abscess/Foreign Body Stated complaint: thinks she has shingled around r eye Time Seen by Provider: 03/16/20 12:51 Source: patient Mode of arrival: Ambulatory Limitations: no limitations History of Present Illness HPI narrative: Patient is a 34-year-old female with history of Alport's syndrome who presents with rash and pain on the right side of her face near her eye. She has a history of shingles it was previously on her left ribcage her. She says over last 2 weeks she has noticed some tingling and irritation. She says it is occasionally painful but not too terrible. She started noticing some rash she thought it was pimples but the pain seems to be worse. She denies any visual changes. He feels like it might be shingles again. complaint: rash Onset (ago): day(s) Location: face Quality: burning and stabbing Pain Consistency: intermittent Relieving factors: none Related Data Home Medications Medication Instructions Recorded Confirmed [ CONTROL] #0 04/07/16 cetirizine #0 04/07/16 cholecalciferol (vitamin D3) #0 04/07/16 [Vitamin D3] loratadine [Claritin] #0 04/07/16 Previous Rx's Medication Instructions Recorded ondansetron [Zofran ODT] 4 mg SUBLINGUAL Q4HP PRN #15 odt 04/07/16 hydroxyzine HCl 25 mg PO BEDTIME PRN #7 tab 11/15/18 acyclovir 800 mg PO 5XD 7 Days #35 tab 03/16/20 prednisone 40 mg PO DAILY #10 tab 03/16/20 Allergies Allergy/AdvReac Type Severity Reaction Status Date / Time carbinoxamine [From [facility]] Allergy Unknown Verified 03/16/20 12:07 pseudoephedrine [From [facility]] Allergy Unknown Verified 03/16/20 12:07 Review of Systems Review of Systems Narrative: GENERAL: Denies chills, fatigue, malaise, fever, sweats, travel HEENT: No visual changes see HPI. Denies sinus pain, ear pain, sore throat, difficulty swallowing, neck pain RESPIRATORY: Denies dyspnea, cough, wheezing, hemoptysis, sputum. CARDIOVASCULAR: Denies chest pain, palpitations, orthopnea, edema GASTROINTESTINAL: Denies nausea, vomiting, abdominal pain, diarrhea, constipation, melena. : Denies dysuria, frequency, incontinence, hematuria, urinary retention, flank pain. MUSCULOSKELETAL: Denies weakness, joint pain, or bony pain SKIN: No rash, no erythema, no pruritus NEUROLOGIC: Denies weakness, dizziness, headache, numbness, change in speech, confusion PSYCHIATRIC: No concerning psychosocial issues. 12 point review of systems is negative except for those stated above and HPI Patient History Medical History (Updated 03/16/20 @ 13:48 by Diya Singh DO) Alports syndrome Surgical History History of Hx of cholecystectomy Family History Mother Coronary artery disease Alports syndrome Father Hyperlipidemia Brother Alports syndrome Social History marital status: number of children: 2 Smoking Status: Former smoker alcohol intake: current substance use type: does not use Smoking Status: Former smoker alcohol intake frequency: holidays/special occasions only Substance Use Type: does not use Exam Initial Vital Signs Initial Vital Signs: Vital Signs Temperature 97.9 F 03/16/20 12:04 Pulse Rate 90 03/16/20 12:04 Respiratory Rate 15 03/16/20 12:04 Blood Pressure 127/69 03/16/20 12:04 Pulse Oximetry 97 03/16/20 12:04 GENERAL: Well-appearing, well-nourished and in no acute distress. EYES: Right eye was treated with proparacaine, stained with fluorescein. No dye uptake. No foreign body. EAR: Right ear no vesicles noted to panic membrane visualized CARDIOVASCULAR: peripheral pulses in tact, cap refill <2 sec RESPIRATORY: No respiratory distress, speaks in full sentences without difficulty EXTREMITIES: Normal range of motion, no clubbing or edema. Neurovascularly intact NEUROLOGICAL: Cranial nerves II through XII grossly intact. Normal gait and speech. SKIN: 1 small grouped vesicle noted corner of right eye. Minimal tenderness to touch Course Orders Ordered: Discontinued Medications Fluorescein Sodium (Fluorescein 1 Mg Strip) 1 mg EYE-BOTH NOW ONE Stop: 03/16/20 13:03 Proparacaine HCl (Proparacaine 0.5% Ophth Cheal) 1 drops EYE-RIGHT NOW ONE Stop: 03/16/20 13:03 Vital Signs Vital signs: Vital Signs - 8 hr 03/16/20 12:04 Temperature 97.9 F Pulse Rate 90 Respiratory Rate 15 Blood Pressure 127/69 Pulse Oximetry 97 MDM - Skin/Abscess/Foreign Bdy MDM Narrative Medical decision making narrative: Possible shingles. There is no evidence that it has extended into the eye or ear. He is given prescription for acyclovir and prednisone. It is unusual that her shingles is presenting in a different area than it did previously. Recommend follow-up outpatient Discharge Plan Departure Patient Disposition: Home Clinical Impression: Shingles Qualifiers: Herpes zoster complications: without complications Qualified Code(s): B02.9 - Zoster without complications Instructions: DI for Shingles Activity Restrictions/Additional Instructions: *You have been diagnosed with shingles *What to do: Pain can persist for a few weeks. This can also move into the eye itself please monitor closely *Continue to take medications as directed Acyclovir 800 mg 5 times a day for 7 days Prednisone 40 mg once a day for 5 days *Follow up with your primary care provider in 2-3 days *Return to ER if you should have pain in I, eye irritation or any new, worsening or concerning symptoms Prescriptions: New acyclovir 800 mg tablet 800 mg PO 5XD 7 Days Qty: 35 RF: 0 prednisone 20 mg tablet 40 mg PO DAILY Qty: 10 RF: 0 No Action cetirizine 10 MG tablet Qty: 0 RF: 0 loratadine [Claritin] 10 MG tablet Qty: 0 RF: 0 cholecalciferol (vitamin D3) [Vitamin D3] 2,000 UNIT capsule Qty: 0 RF: 0 [ CONTROL] Qty: 0 RF: 0 ondansetron [Zofran ODT] 4 MG tablet,disintegrating 4 mg Sublingual Q4HP PRNQty: 15 RF: 0 hydroxyzine HCl 25 mg tablet 25 mg PO BEDTIME PRN (Reason: itching) Qty: 7 RF: 0
== END 2020-03-16 13:59 | disposition home or self-care (01) ==
PROVIDERS: Emergency Provider Emergency Medicine
DX: B02.9 Zoster without complications (principal)
CPT/HCPCS: 99281

== ENCOUNTER 2022-02-16 18:14 | Emergency (ER) | payer OTHER, SELFPAY ==
[2022-02-16 19:01] VITALS: BP 123/72; PULSE 90; RESP 16; TEMP 37.1; O2SAT 98; BMI 36.6
== END 2022-02-16 20:52 | disposition left against medical advice (07) ==
PROVIDERS: Emergency Provider Emergency Medicine
DX: R06.02 Shortness of breath (principal); R05.9 Cough, unspecified
CPT/HCPCS: 99281

== ENCOUNTER 2022-09-01 13:14 | Emergency (ER) | payer OTHER, SELFPAY ==
[2022-09-01 13:20] VITALS: BP 138/75; PULSE 88; RESP 18; TEMP 36.6; O2SAT 99; BMI 37.8
--- NOTE | 2022-09-01 13:24 | ED.BACK ---
HPI - Back Pain/Injury General Chief Complaint: Back Pain/Injury Stated Complaint: lower back pain Time Seen by Provider: 09/01/22 13:20 Source: patient Limitations: no limitations History of Present Illness HPI Narrative: This is a 36-year-old female with history of Alport's disease. Patient states she had sudden onset of low back pain this afternoon. She is had issues when her daughter was 1st born bent over had some back pain, followed with PT had improvement and strengthening her core and did well. About a week ago she bent over to pick something up off the floor felt a pop and had increased pain was increasing throughout the week and today was doing squats with weights and felt sudden increase in pain. Pain radiated down the left leg all the sudden now is localized more to the back but a little bit in both hips. No paresthesias, numbness or weakness. Patient states no saddle anesthesia. No bladder or bowel incontinence. This happened about an hour prior to arrival, she took, 10 mL of liquid ibuprofen. Patient states still quite uncomfortable. Denies fevers chills no chest pain or shortness of breath she was nauseated immediately after happened but no vomiting, nauseous past. No other GI or urinary symptoms. Patient states she is had cholecystectomy and . She is allergic to rondec. No tobacco, alcohol or illicit Related Data Home Medications Medication Instructions Recorded Confirmed [ CONTROL] ##0 04/07/16 cetirizine 10 mg tablet ##0 04/07/16 cholecalciferol (vitamin D3) 50 ##0 04/07/16 mcg (2,000 unit) capsule (Vitamin D3) loratadine 10 mg tablet (Claritin) ##0 04/07/16 Previous Rx's Medication Instructions Recorded ondansetron 4 mg disintegrating 4 mg sublingual Q4HP PRN ##15 04/07/16 tablet (Zofran ODT) hydroxyzine HCl 25 mg tablet 25 mg PO BEDTIME PRN itching #7 11/15/18 tabs prednisone 20 mg tablet 40 mg PO DAILY #10 tabs 03/16/20 cyclobenzaprine 10 mg tablet 10 mg PO TID PRN muscle spasm #10 09/01/22 tabs tramadol 50 mg tablet 50 mg PO Q6H PRN pain #10 tabs 09/01/22 Allergies Allergy/AdvReac Type Severity Reaction Status Date / Time carbinoxamine [From [facility]] Allergy Unknown Verified 09/01/22 13:20 pseudoephedrine [From [facility]] Allergy Unknown Verified 09/01/22 13:20 Review of Systems Review of Systems ROS Unobtainable: All systems reviewed & are unremarkable except as noted in HPI and below Patient History Medical History (Updated 09/01/22 @ 13:51 by Mary Centeno DO) Alports syndrome Surgical History History of Hx of cholecystectomy Family History Mother Coronary artery disease Alports syndrome Father Hyperlipidemia Brother Alports syndrome Social History marital status: number of children: 2 Smoking Status: Former smoker alcohol intake: current substance use type: does not use Smoking Status: Former smoker alcohol intake frequency: holidays/special occasions only Substance Use Type: does not use Exam Narrative Exam Narrative: GENERAL: Alert and oriented x three, female in moderate distress. HEENT: Head normocephalic, atraumatic, EOMI, pupils reactive, face symmetric, moist mucous membranes NECK: Supple, full range of motion CARDIOVASCULAR: Regular rate and rhythm without murmurs, rubs or gallops. RESPIRATORY: Breath sounds equal bilaterally, no wheezes rales or rhonchi. ABDOMEN: Soft, nontender. Normoactive bowel sounds all 4 quadrants. No guarding or rebound, rigidity, no mass : No CVA tenderness BACK: No cervical, thoracic or lumbar vertebral point tenderness. Patient has decreased range of motion. Rectal exam is deferred. No saddle anesthesia. Muscle strength is 5/5 in lower extremities, DTRs are 2/4 and lower extremities. Dorsalis pedis and tibialis pulses are 2+ and lower extremities. Sensation is intact in the lower extremities. EXTREMITIES: Normal range of motion, no clubbing or edema. Neurovascularly intact NEUROLOGICAL: Cranial nerves II through XII grossly intact. Moving all extremities SKIN: Warm, dry, no petechiae, no rashes or lesions. Initial Vital Signs Initial Vital Signs: Vital Signs Temperature 97.9 F 09/01/22 13:20 Pulse Rate 88 09/01/22 13:20 Respiratory Rate 18 09/01/22 13:20 Blood Pressure 138/75 09/01/22 13:20 Pulse Oximetry 99 09/01/22 13:20 Oxygen Delivery Method Room Air 09/01/22 13:20 Course Orders Ordered: Discontinued Medications Diazepam (Diazepam 5 Mg Tablet) 10 mg PO NOW ONE Stop: 09/01/22 13:42 Last Admin: 09/01/22 13:51 Dose: 10 mg Documented By: CHRISTINA Ketorolac Tromethamine (Ketorolac 30 Mg/Ml Vial) 30 mg IM NOW ONE Stop: 09/01/22 13:42 Last Admin: 09/01/22 13:51 Dose: 30 mg Documented By: CHRISTINA Vital Signs Vital signs: Vital Signs - 8 hr 09/01/22 13:20 09/01/22 14:49 Temperature 97.9 F Pulse Rate 88 80 Respiratory Rate 18 16 Blood Pressure 138/75 113/65 Pulse Oximetry 99 100 Oxygen Delivery Method Room Air Room Air MDM - Back Pain/Injury MDM Narrative Medical decision making narrative: Discussed with patient no acute red flag changes requiring imaging at this time. Plan for pain medication some muscle relaxation on re-evaluation patient still has some pain but is feeling improved. She defers anything additional. Does not have reviewed return precautions. Discussed with patient need for follow-up likely would repeat PT if symptoms are persisting beyond a week, pain management at home as well some muscle relaxation and discussed red flag symptoms for emergent return to the ER versus follow-up outpatient. Discharge Plan Departure Patient Disposition: Home Clinical Impression: Low back pain Instructions: DI for Low Back Pain Activity Restrictions/Additional Instructions: Follow-up with your physician for recheck, call for an appointment if your symptoms are not improving over the week. You can continue with Tylenol up to a 1000 mg and/or ibuprofen up to 600 mg every 6 hours. You may take Flexeril 1 tablet every 8 hours as needed for muscle spasm. You may take 1-2 tramadol every 6 hours as needed for pain. This medication can make you sleepy do not drive, perform hazardous activities or make any major decisions while taking it. This medication will make you constipated please take a stool softener once to twice daily until stools are soft and regular. [facility] [place]. Please return for fevers, rapidly worsening pain, uncontrolled pain, new numbness, tingling or weakness, loss of sensation, loss of bowel or bladder control, inability to lift or more your legs or other new or concerning changes. Prescriptions: New cyclobenzaprine 10 mg tablet 10 mg PO TID PRN (Reason: muscle spasm) Qty: 10 0RF tramadol 50 mg tablet 50 mg PO Q6H PRN (Reason: pain) Qty: 10 0RF No Action cetirizine 10 MG tablet Qty: 0 loratadine [Claritin] 10 MG tablet Qty: 0 cholecalciferol (vitamin D3) [Vitamin D3] 2,000 UNIT capsule Qty: 0 [ CONTROL] Qty: 0 ondansetron [Zofran ODT] 4 MG tablet,disintegrating 4 mg Sublingual Q4HP PRNQty: 15 0RF prednisone 20 mg tablet 40 mg PO DAILY Qty: 10 0RF hydroxyzine HCl 25 mg tablet 25 mg PO BEDTIME PRN (Reason: itching) Qty: 7 0RF Referrals: ProviderJohnson [Primary Care Provider] - Stand Alone Forms: Patient Portal/API, Work Release Note
[2022-09-01] MEDS: diazePAM 5 MG TABLET 10 MG PO (13:51)
[2022-09-01] MEDS: KETOROLAC 30 MG/ML VIAL IM (13:51)
[2022-09-01 14:49] VITALS: BP 113/65; PULSE 80; RESP 16; O2SAT 100
== END 2022-09-01 14:53 | disposition home or self-care (01) ==
PROVIDERS: Emergency Provider Emergency Medicine
DX: M54.50 Low back pain, unspecified (principal)
CPT/HCPCS: 96372; 99283; J1885

== ENCOUNTER 2022-09-05 11:29 | Emergency (ER) | payer OTHER, SELFPAY ==
--- NOTE | 2022-09-05 11:32 | ED_ITS ---
HPI - Back Pain/Injury <Juan Manuel Nash PA-C - Last Filed: 09/05/22 13:25> General Chief Complaint: Back Pain/Injury Stated Complaint: sent by /jordan mcintosh T-4 not getting better Time Seen by Provider: 09/05/22 11:30 History of Present Illness HPI Narrative: This is a 36-year-old female presents emergency department due to continue lower back pain. Patient initially hurt her lower back about a week and a half ago while lifting something and then re-injured it about 4 days ago while squatting with a heavy barbell. She was seen here in the emergency department 4 days ago and was given Toradol as well as a prescription for muscle relaxants and tramadol. She states the pain is continuing although she denies any new symptoms such as saddle paresthesias, urinary or bowel incontinence, lower extremity weakness or numbness, or any other concerning signs or symptoms. No new injuries since being seen 4 days ago. Related Data Home Medications Medication Instructions Recorded Confirmed [ CONTROL] ##0 04/07/16 cetirizine 10 mg tablet ##0 04/07/16 cholecalciferol (vitamin D3) 50 ##0 04/07/16 mcg (2,000 unit) capsule (Vitamin D3) loratadine 10 mg tablet (Claritin) ##0 04/07/16 Previous Rx's Medication Instructions Recorded ondansetron 4 mg disintegrating 4 mg sublingual Q4HP PRN ##15 04/07/16 tablet (Zofran ODT) hydroxyzine HCl 25 mg tablet 25 mg PO BEDTIME PRN itching #7 11/15/18 tabs cyclobenzaprine 10 mg tablet 10 mg PO TID PRN muscle spasm #10 09/01/22 tabs tramadol 50 mg tablet 50 mg PO Q6H PRN pain #10 tabs 09/01/22 cyclobenzaprine 10 mg tablet 10 mg PO TID PRN muscle spasm #20 09/05/22 tabs methylprednisolone 4 mg tablets in See Rx Instructions PO .COMPLEX 09/05/22 a dose pack (Medrol (Arsenio)) #21 ea Allergies Allergy/AdvReac Type Severity Reaction Status Date / Time carbinoxamine [From [facility]] Allergy Unknown Verified 09/05/22 11:36 pseudoephedrine [From [facility]] Allergy Unknown Verified 09/05/22 11:36 Review of Systems <Juan Manuel Nash PA-C - Last Filed: 09/05/22 13:25> Review of Systems Narrative: GENERAL: Denies chills, fatigue, malaise, fever, sweats. HEENT: Denies sinus pain, ear pain, sore throat, difficulty swallowing, dizzi ness. RESPIRATORY: Denies dyspnea, cough, wheezing, hemoptysis, sputum. CARDIOVASCULAR: Denies chest pain, palpitations, orthopnea, edema, GASTROINTESTINAL: Denies nausea, vomiting, abdominal pain, diarrhea, constipation, melena. : Denies dysuria, frequency, incontinence, hematuria, urinary retention. MUSCULOSKELETAL: Reports lower back pain SKIN: Denies rash, skin lesions, or other NEUROLOGIC: Denies weakness, headache, numbness, change in speech, confusion, seizures, incoordination. PSYCHIATRIC: No concerning psychosocial issues. 12 point review of systems is negative except for those stated above Patient History <Juan Manuel Nash PA-C - Last Filed: 09/05/22 13:25> Medical History (Updated 09/05/22 @ 12:46 by Juan Manuel Nash PA-C) Alports syndrome Surgical History History of Hx of cholecystectomy Family History Mother Coronary artery disease Alports syndrome Father Hyperlipidemia Brother Alports syndrome Social History marital status: number of children: 2 Smoking Status: Former smoker alcohol intake: current substance use type: does not use Smoking Status: Former smoker tobacco type: cigarettes alcohol intake frequency: holidays/special occasions only Substance Use Type: does not use Exam <Juan Manuel Nash PA-C - Last Filed: 09/05/22 13:25> Narrative Exam Narrative: GENERAL: Well-developed patient, in mild distress. HEAD: Atraumatic. Normocephalic. EYES: Pupils equal round and reactive. Extraocular motions intact. No scleral icterus. No injection or drainage. ENT: Nose without bleeding, purulent drainage. Throat without erythema, ton sillar hypertrophy or exudate. Airway patent. NECK: Trachea midline. Non tender EXTREMITIES: No edema or joint tenderness. BACK: Mild tenderness to palpation to the lumbar paraspinal muscles NEURO: AOx3. SKIN: No rash or erythema of visible areas Initial Vital Signs Initial Vital Signs: Vital Signs Temperature 97.8 F 09/05/22 11:34 Pulse Rate 91 H 09/05/22 11:34 Respiratory Rate 18 09/05/22 11:34 Blood Pressure 139/69 09/05/22 11:34 Pulse Oximetry 99 09/05/22 11:34 Oxygen Delivery Method Room Air 09/05/22 11:34 <Francisco Price DO - Last Filed: 09/10/22 04:16> Initial Vital Signs Initial Vital Signs: Vital Signs Temperature 97.8 F 09/05/22 11:34 Pulse Rate 91 H 09/05/22 11:34 Respiratory Rate 18 09/05/22 11:34 Blood Pressure 139/69 09/05/22 11:34 Pulse Oximetry 99 09/05/22 11:34 Oxygen Delivery Method Room Air 09/05/22 11:34 Course <Juan Manuel Nash PA-C - Last Filed: 09/05/22 13:25> Orders Ordered: Discontinued Medications Ketorolac Tromethamine (Ketorolac 30 Mg/Ml Vial) 15 mg IM NOW ONE Stop: 09/05/22 11:38 Last Admin: 09/05/22 11:40 Dose: 15 mg Documented By: CARLOS Vital Signs Vital signs: Vital Signs - 8 hr 09/05/22 11:34 09/05/22 12:54 Temperature 97.8 F Pulse Rate 91 H 77 Respiratory Rate 18 16 Blood Pressure 139/69 126/59 L Pulse Oximetry 99 98 Oxygen Delivery Method Room Air Room Air <Francisco Price DO - Last Filed: 09/10/22 04:16> Orders Ordered: Discontinued Medications Ketorolac Tromethamine (Ketorolac 30 Mg/Ml Vial) 15 mg IM NOW ONE Stop: 09/05/22 11:38 Last Admin: 09/05/22 11:40 Dose: 15 mg Documented By: CARLOS Vital Signs Vital signs: Vital Signs - 8 hr 09/05/22 11:34 09/05/22 12:54 Temperature 97.8 F Pulse Rate 91 H 77 Respiratory Rate 18 16 Blood Pressure 139/69 126/59 L Pulse Oximetry 99 98 Oxygen Delivery Method Room Air Room Air MDM - Back Pain/Injury <Juan Manuel Nash PA-C - Last Filed: 09/05/22 13:25> Imaging Data Lumbar XR : Radiologist's Impression: [address] [address] XRay Report Signed Patient: Lisa Rivas MR#: [id number] : 1985 Acct:[id number] Age/Sex: 36 / F Date of Service: 09/05/22 Loc: ED Accession Number: [id number] ?? Procedure: XR lumbar spine 2-3V Ordering Provider: Juan Manuel Nash P.A-C PROCEDURE:? XR LUMBAR SPINE 2-3V ? INDICATIONS:? Continued LBP s/p trauma ? TECHNIQUE:? 3 views of the lumbar spine were acquired.? ? COMPARISON:? None. ? FINDINGS:? ? Bones:? 5 [id number] vertebrae are present.? There is normal bony alignment.? No vertebral body compression fractures.? No suspicious bony lesions.? ? Soft tissues:? Overlying bowel gas pattern is normal.? No suspicious soft tissue calcifications.? ? ? IMPRESSION:? No visualized acute fracture or dislocation. However, if clinical concern and/or pain persist, short interval imaging followup in 7-10 days is recommended, as occult injury cannot be definitively excluded. ? ? Dictated by: Eva Mejía M.D. on 09/05/2022 at 12:25 ? ? Approved by: Eva Mejía M.D. on 09/05/2022 at 12:25 ? MDM Narrative Medical decision making narrative: MDM * differential diagnosis includes but not limited to lumbosacral strain, lumbar fracture, spinal cord injury, sciatica * Prior records reviewed:Patient was seen here 4 days ago for lower back pain. History of Alport's disease. Approximately a week and a half ago she bent over to pick something off the floor and felt a pop and 4 days ago she was doing squats with weights with a sudden increase in the pain. Pain was primarily affecting her back and bilateral hips. No saddle anesthesia or bladder or bowel incontinence. Patient was recommended PT as well as home medications. Toradol given. Cyclobenzaprine and tramadol prescribed. * My lab interpretation: None obtained * My imgaing interpretation: Lumbar x-ray shows no fractures * Clinical Decision Rules/Scores evaluated: None * Independent discussions with: None ED Course: This is a 36-year-old female presents emergency department due to continued lower back pain secondary to a suspected lumbar sacral strain. She is not present with any red flag symptoms such as saddle paresthesias or urinary or bowel incontinence. Patient was given IM Toradol as well as a prescription for muscle relaxants as well as a Medrol Dosepak. Recommended she follow up with the primary care provider for physical therapy and long-term management of the pain. Recommended light exercise and conservative therapies. Shared Decision Making: Discussed plan the patient is comfortable with the plan. Social Considerations: None Disposition: Discharged to home Discharge Plan Departure Patient Disposition: Home Clinical Impression: Strain of lumbar region Activity Restrictions/Additional Instructions: Thank you for coming to the [facility] Emergency Department today. Your lumbar x-ray shows no evidence of any fractures. I suspect this is a strain of your lumbar area that should improve over time. The muscle relaxants should help here also recommended light movement and stretching to help as you do not want your muscles to ?lock up?. The oral steroids prescribed should also help. As well as the Toradol given. Please follow up with the primary care provider and physical therapy for long-term management of the pain. I sent your medications to [facility] in [place]. I hope you feel better soon. Prescriptions: New cyclobenzaprine 10 mg tablet 10 mg PO TID PRN (Reason: muscle spasm) Qty: 20 0RF methylprednisolone [Medrol (Arsenio)] 4 mg tablets,dose pack See Rx Instructions .ROUTE .COMPLEX Qty: 21 0RF Rx Instructions: orally per package directions No Action cetirizine 10 MG tablet Qty: 0 loratadine [Claritin] 10 MG tablet Qty: 0 cholecalciferol (vitamin D3) [Vitamin D3] 2,000 UNIT capsule Qty: 0 [ CONTROL] Qty: 0 ondansetron [Zofran ODT] 4 MG tablet,disintegrating 4 mg Sublingual Q4HP PRNQty: 15 0RF hydroxyzine HCl 25 mg tablet 25 mg PO BEDTIME PRN (Reason: itching) Qty: 7 0RF cyclobenzaprine 10 mg tablet 10 mg PO TID PRN (Reason: muscle spasm) Qty: 10 0RF tramadol 50 mg tablet 50 mg PO Q6H PRN (Reason: pain) Qty: 10 0RF Referrals: ProviderJohnson [Primary Care Provider] - Stand Alone Forms: Patient Portal/API, Work Release Note <Francisco Price DO - Last Filed: 09/10/22 04:16> Cosign ED Attending Korina Attestation: I was immediately available in the department for consultation. Documentation has been reviewed. I agree with assessment and plan.
[2022-09-05 11:34] VITALS: BP 139/69; PULSE 91; RESP 18; TEMP 36.6; O2SAT 99
--- NOTE | 2022-09-05 11:37 | DI.RAD.S_ITS ---
PROCEDURE: XR LUMBAR SPINE 2-3V INDICATIONS: Continued LBP s/p trauma TECHNIQUE: 3 views of the lumbar spine were acquired. COMPARISON: None. FINDINGS: Bones: 5 [id number] vertebrae are present. There is normal bony alignment. No vertebral body compression fractures. No suspicious bony lesions. Soft tissues: Overlying bowel gas pattern is normal. No suspicious soft tissue calcifications. IMPRESSION: No visualized acute fracture or dislocation. However, if clinical concern and/or pain persist, short interval imaging followup in 7-10 days is recommended, as occult injury cannot be definitively excluded. Dictated by: Eva Mejía M.D. on 09/05/2022 at 12:25 Approved by: Eva Mejía M.D. on 09/05/2022 at 12:25
[2022-09-05] MEDS: KETOROLAC 30 MG/ML VIAL 15 MG IM (11:40)
[2022-09-05 12:54] VITALS: BP 126/59; PULSE 77; RESP 16; O2SAT 98
== END 2022-09-05 12:58 | disposition home or self-care (01) ==
PROVIDERS: Emergency Provider Physician Assistant Medical
DX: S39.012A Strain of muscle, fascia and tendon of lower back, initial encounter (principal); X50.0XXA Overexertion from strenuous movement or load, initial encounter
CPT/HCPCS: 72100; 96372; 99283; J1885